=== PATIENT | male | born 1935 | race Caucasian/White ===

== ENCOUNTER 2016-05-07 07:36 | Day surgery (SDC) | payer MEDICARE ==
[~2016-05-07 07:36] MED LIST: RINGERS SOLUTION,LACTATED 1,000 ML IV PRN
--- OUTSIDE RECORDS SUMMARY | 2016-05-07 07:41 | XMS REPORT | Continuity of Care Document ---
:1935 Author Organization [facility] ([facility]) Address [place] [address] Phone [phone] Care Team Providers Name Role Phone Ari Pineda Primary Care Provider [phone] Source Comments This disclosure is being made pursuant to the Care Everywhere program, applicable federal and state laws, and may not contain all informaitonavailable regarding this patient.[facility] ([facility]) Active Allergies and Adverse Reactions No Known Allergies Current Medications Prescription Sig. Disp. Refills Start Date End Date Status PROAIR HFA 90 mcg/Actuation inhaler 09/07/2014 Active QVAR 80 mcg/Actuation inhaler 09/07/2014 Active ZETIA 10 mg tablet 09/07/2014 Active IBUPROFEN 800 mg tablet 07/11/2014 Active LOVASTATIN 40 mg tablet 09/07/2014 Active METOPROLOL tartrate 50 mg tablet 09/07/2014 Active NITROSTAT 0.4 mg SL tablet 09/07/2014 Active SPIRIVA WITH HANDIHALER 18 mcg 09/07/2014 Active inhalation capsule Active Problems Problem Noted Date Coronary artery disease Cardiac arrest Status post AAA (abdominal aortic aneurysm) repair Hypertension Hyperlipidemia Social History Tobacco Use Types Packs/Day Years Used Date Former Smoker Alcohol Use Drinks/Week oz/Week Comments Yes Last Filed Vital Signs Vital Sign Reading Time Taken Blood Pressure 136/90 09/19/2014 11:03 AM CDT Pulse 70 09/19/2014 11:03 AM CDT Temperature - - Respiratory Rate - - Height 1.778 m (5' 10") 09/19/2014 11:03 AM CDT Weight 91.627 kg (202 lb) 09/19/2014 11:03 AM CDT Body Mass Index 28.98 09/19/2014 11:03 AM CDT Oxygen Saturation - - Plan of Care Health Maintenance Due Date Last Done Comments Hepatitis B Vaccine (1 of 3 - Primary Series) 1935 Tdap Vaccine 08/04/1947 Lipid Disorder Screening 1954 Td Vaccine 1953 Colonoscopy 1986 Zoster Vaccine 1996 Pneumococcal Vaccine (1 of 2 - PCV13) 2001 Influenza Vaccine: Seasonal (#1) 10/08/2015 Results from Last 3 Months Not on file
[2016-05-07 10:49] VITALS: BP 111/57
--- NOTE | 2016-05-07 12:01 | OR ---
Operative Report - Dictated Report Narrative: OPERATIVE REPORT DATE OF OPERATION: 05/07/2016 PREOPERATIVE DIAGNOSIS: History of colon polyps. Diarrhea. Recent colitis demonstrated on PET/CT POSTOPERATIVE DIAGNOSIS: Colitis (pathology and cultures pending) OPERATION: Sigmoidoscopy with biopsies and collection of stool sample SURGEON: Michelle Perez MD ANESTHESIA: PANKAJ Garay CRNA INDICATIONS FOR PROCEDURE: The patient is a 80-year-old male referred by Dr. Pineda initially for colon polyp surveillance. The patient has a past history of adenomatous polyps in 2011 and is due for surveillance. When initially seen in the office he complained of constipation, however he has developed diarrhea, and a PET/CT scan done yesterday demonstrates colitis. FINDINGS: Significant colitis with exudate (biopsy and stool samples pending) NARRATIVE OF PROCEDURE: The patient was identified in the holding area, and prior to the administration of anesthetic, a multidisciplinary timeout was observed. With the patient in the left lateral position and after the administration of intravenous sedation, the perineum was inspected. There was no evidence of pilonidal disease or skin breakdown. The external appearance of the anus was normal. Sphincter tone was good. The flexible fiberoptic colonoscope was inserted into the rectum which was insufflated with air. Immediately apparent was marked erythema of the mucosa with exudate. Prep liquid was suctioned to allow the scope to be advanced to approximately 40 cm. The colitis was seen to extend proximally. Decision was made not to pursue colonoscopy given the severity of inflammation. Random biopsies were obtained of manufacturers representative mucosa. The biopsy sites were seen to be hemostatic. Liquid stool was collected and submitted for Gram stain, culture for pathogens, C. difficile toxin, and O and P. The insufflated air was removed and as much liquid as possible suctioned. The scope was withdrawn from the patient and the procedure terminated. The patient tolerated the anesthetic and procedure well without complication and was transferred back to the ambulatory surgery area awake and in stable condition. The patient remained stable throughout a period of postoperative observation. He denied abdominal discomfort, was able to tolerate by mouth intake, and was up without assistance. I shared the operative findings with the patient and his family, and he was given copies of the photographs which appear in the medical record. He was discharged home with instructions not to engage in hazardous activity today, but may resume normal activity tomorrow, and advance diet as tolerated. He is to continue those medications as listed in the history and physical exam. I made arrangements to contact him with the biopsy reports and will make additional recommendations for treatment and follow-up based upon those results. Reviewed and electronically signed
== END 2016-05-07 07:37 | disposition home or self-care (01) ==
LOC: AMB 07:36
PROVIDERS: ATTEND Surgery
PROC: 0DBN8ZX Excision of Sigmoid Colon, Via Natural or Artificial Opening Endoscopic, Diagnostic (ICD-10-PCS; principal; 2016-05-07 08:45)
DX: Z12.11 Encounter for screening for malignant neoplasm of colon (principal); K52.89 Other specified noninfective gastroenteritis and colitis; I10 Essential (primary) hypertension; I25.10 Atherosclerotic heart disease of native coronary artery without angina pectoris; E78.5 Hyperlipidemia, unspecified; J44.9 Chronic obstructive pulmonary disease, unspecified; E66.9 Obesity, unspecified; Z68.28 Body mass index [BMI] 28.0-28.9, adult; Z86.010 Personal history of colon polyps; Z80.0 Family history of malignant neoplasm of digestive organs; Z87.891 Personal history of nicotine dependence

== ENCOUNTER 2016-05-21 09:52 | Inpatient (IN) | payer MEDICARE ==
[2016-05-21 10:28] LABS: Hematocrit 33.9 % (42.0-52.0); Hemoglobin 10.9 gm/dL (13.5-18.0); Mean Cell Volume 89.7 fl (78-100); Mean Corpuscular Hemoglobin 28.8 pg (27-31); Mean Corpuscular Hgb Conc 32.2 g/dl (32-36); Mean Platelet Volume 8.6 fl (6.0-9.5); Neutrophil # 5.8 K/mm3 (1.3-6.0); Neutrophil % 83.1 % (42-75.0); Platelet Count 307 K/mm3 (150-450); Red Blood Count 3.78 M/mm3 (4.7-6.0); Red Cell Distribution Width 15.6 % (11.5-14.0); White Blood Count 6.9 K/mm3 (4.0-10.5)
[2016-05-21 10:49] LABS: Anion Gap 12.5 mmol/L (6.8-13.8); BUN/Creatinine Ratio 22.6 (9.0-21.6); Bilirubin, Total 0.5 mg/dL (0.0-1.1); Ca. Corrected For Albumin 9.3 mg/dL (8.4-10.2); Carbon Dioxide 22.7 mmol/L (24-32.6); Potassium 4.2 mmol/L (3.4-4.6); Total Protein 5.4 gm/dL (6.2-8.2)
[2016-05-21] MEDS ORDERED: DEXTROSE 5%-LACTATED RINGERS 1,000 ML IV PRN (11:21)
--- OUTSIDE RECORDS SUMMARY | 2016-05-21 11:23 | XMS REPORT | Continuity of Care Document ---
:1935 Author Organization [facility] ([facility]) Address [place] [address] Phone [phone] Care Team Providers Name Role Phone Ari Pineda Primary Care Provider [phone] Source Comments This disclosure is being made pursuant to the Care Everywhere program, applicable federal and state laws, and may not contain all informaitonavailable regarding this patient.[facility] ([facility]) Active Allergies and Adverse Reactions No [...]
--- NOTE | 2016-05-21 13:44 | ERNOTE ---
Medical Problem HPI - Narrative Date of Service: 05/21/16 - General Chief Complaint: General Assessment Time Seen by Provider: 05/21/16 11:20 Source: patient Exam Limitations: no limitations - Immun/Allergies/Home Medications Immunizations: IMMUNIZATION HX Immunizations Up to Date Yes History of Influenza Vaccine Yes Hx Pneumococcal Vaccination Yes Allergies/Adverse Reactions: Allergies hydrocodone Adverse Reaction (Intermediate, Verified 05/21/16 10:04) Other "wired" aggression Home Medications: HOME MEDICATIONS Aspirin [Tom Chewable Aspirin] 81 mg PO DAILY 02/04/14 [Last Taken 02/03/14] Ibuprofen [Motrin] 800 mg PO TID PRN 02/04/14 [Last Taken 02/03/14] Lovastatin 80 mg PO DAILY 05/22/15 [Last Taken Unknown] Metoprolol Tartrate [Lopressor] 25 mg PO BID 05/22/15 [Last Taken 05/07/16] Nitroglycerin [Nitrostat] 0.4 mg SL Q5MIN PRN 05/22/15 [Last Taken Unknown] Tiotropium [place] [Spiriva] 1 cap IH DAILY 05/22/15 [Last Taken Unknown] Mometasone Furoate [Asmanex Hfa] 100 mcg IH BID 04/11/16 [Last Taken Unknown] traMADol HCL [Ultram] 25 mg PO QID PRN 04/11/16 [Last Taken Unknown] Ciprofloxacin HCl [Cipro] 500 mg PO BID 05/21/16 [Last Taken Unknown] L.acidoph & Paracasei,B.lactis [Probiotic] 1 each PO DAILY 05/21/16 [Last Taken Unknown] Multivitamin [One Daily Essential] 1 each PO DAILY 05/21/16 [Last Taken Unknown] Tamsulosin HCl [Flomax] 0.8 mg PO DAILY 05/21/16 [Last Taken Unknown] metroNIDAZOLE [Flagyl] 500 mg PO QID 05/21/16 [Last Taken Unknown] - History of Present History Narrative: Brought to ER by ambulance at the request of his family with c/o severe diarrhea. Pt has had chronic diarrhea for about 3 months, he said, and was recently started on Flagyl and Cipro for colitis. C-dif was ruled out. For last two days, he energy level has waned considerably, and he has had several episodes of watery stool. Timing: constant, getting worse Severity: severe Review of Systems - Review of Systems Constitutional: Present: no symptoms reported EYE: Present: no symptoms reported ENT: Present: no symptoms reported Respiratory: Present: no symptoms reported Cardiology: Present: no symptoms reported Gastrointestinal/Abdominal: Present: diarrhea, eating less Genitourinary: Present: no symptoms reported Musculoskeletal: Present: no symptoms reported Skin: Present: no symptoms reported Neurological: Present: no symptoms reported Endocrine: Present: no symptoms reported Hematologic/Lymphatic: Present: no symptoms reported Psych: Present: no symptoms reported All Other Systems: All systems neg except as marked - Patient's Past Medical History Patient History - Medical: Obesity, Osteoarthritis Patient History - Cardiac/Respiratory: COPD, Hyperlipidemia, Peripheral Vascular Disease Patient History - Cancer: No Hx of Cancer Patient History - Surgical Procedures: Cataracts, Colonoscopy, Other Patient History - Other: None - Family History Father Family History - Medical: , No pertinent hx Family History - Cardiac/Respiratory: Myocardial Infarction Family History - Cancer: No pertinent family hx Mother Family History - Medical: , No pertinent hx Family History - Cardiac/Respiratory: No pertinent hx Family History - Cancer: Colon - Social History Living Situations: alone Abuse History: No History of abuse Psych History: No pertinent hx Smoking Status: Former smoker Alcohol Use: none Drug Use: none - Immunizations Immunizations Up to Date: Yes Hx Pneumococcal Vaccination: Yes History of Influenza Vaccine: Yes Physical Exam - Physical Exam General Appearance: Present: alert, no apparent distress, lethargic - slightly Eye Exam: Normal inspection: bilateral, PERRL: bilateral, EOMI: bilateral Ears, Nose, Throat: Present: normal except -, other - Dry mmm Neck: Present: normal inspection, nontender Respiratory: Present: no respiratory distress, normal breath sounds, no accessory muscle use, chest nontender, lungs clear Cardiovascular/Chest: Present: no murmur, irregularly irregular Gastrointestinal/Abdominal: Present: normal bowel sounds, nontender, nondistended, soft, no organomegaly Extremity Exam: Present: normal inspection Neurological Exam: Present: alert, oriented, normal mood/affect, no motor/ sensory deficits Skin Exam: Present: normal color, warm/dry ED Progress - Results and Orders Patient's Lab Results:: I have reviewed the patient's lab results. - Vital Signs Patient's Vital Signs:: I have reviewed the patient's vital signs. Vital Signs: Vital Signs 05/21/16 05/21/16 05/21/16 09:58 10:13 10:37 Temperature 36.4 C L Pulse Rate 99 93 89 Respiratory 13 17 19 Rate Blood Pressure 102/57 101/65 96/60 O2 Sat by Pulse 100 100 98 Oximetry 05/21/16 05/21/16 11:29 12:48 Temperature 36.5 C 36.5 C Pulse Rate 99 99 Respiratory 18 20 Rate Blood Pressure 102/51 98/59 O2 Sat by Pulse 92 93 Oximetry - EKG EKG: atrial fibrillation - with ventricular rate of 99 bpm. EKG read: Interp. by me - Progress/Reassessment Chief Complaint: General Assessment Progress:: Improved - after IV fluid. Plan - Plan Plan: Case discussed with Dr. Pineda; will admit pt to observation. Departure - Departure Clinical Impression: Dehydration, severe, Acute renal insufficiency, Severe diarrhea, Chronic a-fib Condition: Fair
[2016-05-21] MEDS: NORMAL SALINE 1,000 ML IV PRN ×2 (14:48→17:57)
--- OUTSIDE RECORDS SUMMARY | 2016-05-21 14:51 | XMS REPORT | Continuity of Care Document ---
:1935 Author Organization [facility] ([facility]) Address [place] [address] Phone [phone] Care Team Providers Name Role Phone Ari Pineda Primary Care Provider [phone] Source Comments This disclosure is being made pursuant to the Care Everywhere program, applicable federal and state laws, and may not contain all informaitonavailable regarding this patient.[facility] ([facility]) Active Allergies and Adverse Reactions No [...]
--- NOTE | 2016-05-21 17:30 | HP ---
Chief Complaint - Chief Complaint Date of Service: 05/21/16 Time of Service: 17:16 Chief Complaint: weakness and diarrhea History of Present Illness: Gonzalez Looney, is a 80-year-old white female, with previous medical history of coronary artery disease hypertension, COPD, peripheral vascular disease, abdominal aortic aneurysm ,popliteal aneurysm, who was admitted on 05/21/2016 because of severe weakness and diarrhea. Patient has had diarrhea for the last [address] scan of his abdomen showed colitis which could be infectious versus inflammatory. He also had a colonoscopy by Dr. Perez. His colon was capacitors and so it was not completed. His inflammatory bowel disease panel and celiac panel came back normal. He was started on Cipro/ Flagyl and has 2 more days left with it. He said initially his diarrhea got better, however, it has recurred with a vengeance and for the last few days he has been getting more weak, loosing his energy and unable to ambulate at times from his bed to the bathroom because of weakness, lightheadedness and dizziness. His son then called 911 and he was brought to emergency room. In the ER his SBP was ranging from 80's to low 100's. His Cr was 1.87 . He was started on IVF and admitted for observation. - Patient's Past Medical History Patient History - Medical: Obesity, Osteoarthritis Patient History - Cardiac/Respiratory: CHF, COPD, Hyperlipidemia, Myocardial Infarction, Peripheral Vascular Disease Patient History - Cancer: No Hx of Cancer Patient History - Surgical Procedures: Cataracts, Colonoscopy, Other Patient History - Other: None - Family History Father Family History - Medical: , No pertinent hx Family History - Cardiac/Respiratory: Myocardial Infarction Family History - Cancer: No pertinent family hx Mother Family History - Medical: , No pertinent hx Family History - Cardiac/Respiratory: No pertinent hx Family History - Cancer: Colon - Social History Living Situations: alone Abuse History: No History of abuse Psych History: No pertinent hx Smoking Status: Former smoker Have you smoked in the past 12 months: No Alcohol Use: none Drug Use: none - Immunizations Immunizations Up to Date: Yes Hx Pneumococcal Vaccination: Yes History of Influenza Vaccine: Yes Review Of Systems (GEN) - Review of Systems Generalized/Overall Review: Present: Weakness, Fatigue. Absent: Chills, Fever EENTM: Present: No Symptoms Reported Respiratory: Absent: Cough, Shortness of Breath Cardiac: Present: Edema. Absent: Chest Pain, Palpitations Abdominal: Present: Diarrhea. Absent: Nausea, Vomiting Genitourinary: Absent: Urgency, Frequency Musculoskeletal: Absent: Joint Pain Allergies/Adverse Reactions: Allergies Allergy/AdvReac Type Severity Reaction Status Date / Time hydrocodone AdvReac Intermediate Other Verified 05/21/16 16:16 Home Medications: HOME MEDICATIONS Aspirin [Tom Chewable Aspirin] 81 mg PO DAILY 02/04/14 [Last Taken 02/03/14] Ibuprofen [Motrin] 800 mg PO TID PRN 02/04/14 [Last Taken 02/03/14] Lovastatin 80 mg PO DAILY 05/22/15 [Last Taken Unknown] Metoprolol Tartrate [Lopressor] 25 mg PO BID 05/22/15 [Last Taken 05/07/16] Nitroglycerin [Nitrostat] 0.4 mg SL Q5MIN PRN 05/22/15 [Last Taken Unknown] Tiotropium [place] [Spiriva] 1 cap IH DAILY 05/22/15 [Last Taken Unknown] Mometasone Furoate [Asmanex Hfa] 100 mcg IH BID 04/11/16 [Last Taken Unknown] traMADol HCL [Ultram] 25 mg PO QID PRN 04/11/16 [Last Taken Unknown] Albuterol Sulfate [Proair Hfa] 2 puff IH QID PRN 05/21/16 [Last Taken Unknown] Ciprofloxacin HCl [Cipro] 500 mg PO BID 05/21/16 [Last Taken Unknown] Ipratropium/Albuterol Sulfate [Combivent Respimat Inhal [place]] 1 puff NEB BID [Last Taken Unknown] L.acidoph & Paracasei,B.lactis [Probiotic] 1 each PO DAILY 05/21/16 [Last Taken Unknown] Multivitamin [One Daily Essential] 1 each PO DAILY 05/21/16 [Last Taken Unknown] Tamsulosin HCl [Flomax] 0.8 mg PO DAILY 05/21/16 [Last Taken Unknown] metroNIDAZOLE [Flagyl] 500 mg PO QID 05/21/16 [Last Taken Unknown] Exam - Exam Vital Signs: Vital Signs - Last Taken Temp 37.1 C 05/21/16 15:46 Pulse 92 05/21/16 15:46 Resp 16 05/21/16 15:46 BP 96/53 05/21/16 15:46 Pulse Ox 93 05/21/16 15:46 Constitutional: Present: Alert, Oriented x3, Cooperative, Mild distress ENT Exam: Present: hearing grossly normal Eye Exam: bilateral eye: normal inspection, PERRL, EOMI Neck: Present: supple Breasts: Present: Exam deferred Respiratory: Present: decreased breath sounds, No rales, No wheezing Cardiovascular/Chest: Present: regular rate, rhythm, no JVD, no murmur Abdomen: Present: soft, other - positive aneurysmal bruit, distended, hypoactive Extremity: Present: no calf tenderness, lower extremity edema, other - positive aneurysm, left poploteal area Diagnostic Studies: Laboratory Results WBC 6.9 K/mm3 (4.0-10.5) 05/21/16 10:23 RBC 3.78 M/mm3 (4.7-6.0) L 05/21/16 10:23 Hgb 10.9 gm/dL (13.5-18.0) L 05/21/16 10:23 Hct 33.9 % (42.0-52.0) L 05/21/16 10:23 MCV 89.7 fl (78-100) 05/21/16 10:23 MCH 28.8 pg (27-31) 05/21/16 10:23 MCHC 32.2 g/dl (32-36) 05/21/16 10:23 RDW 15.6 % (11.5-14.0) H 05/21/16 10:23 Plt Count 307 K/mm3 (150-450) 05/21/16 10:23 MPV 8.6 fl (6.0-9.5) 05/21/16 10:23 Immature Gran % (Auto) 1.00 % (0.001-0.429) H 05/21/16 10:23 Immature Gran # (Auto) 0.07 K/mm3 (0.000-0.0310) H 05/21/16 10:23 Neutrophils % 83.1 % (42-75.0) H 05/21/16 10:23 Lymphocytes % 4.5 % (20-51) L 05/21/16 10:23 Monocytes % 9.5 % (0.0-9) H 05/21/16 10:23 Eosinophils % 1.6 % (0.0-3.0) 05/21/16 10:23 Basophils % 0.3 % (0.0-1.0) 05/21/16 10:23 Nucleated RBC % 0.0 k/mm3 (0-1) 05/21/16 10:23 Neutrophils # 5.8 K/mm3 (1.3-6.0) 05/21/16 10:23 Lymphocytes # 0.3 k/mm3 (1.5-3.5) L 05/21/16 10:23 Monocytes # 0.7 k/mm3 (0.0-1.0) 05/21/16 10:23 Eosinophils # 0.1 k/mm3 (0.0-0.7) 05/21/16 10:23 Absolute Basophils 0.0 k/mm3 (0.0-0.1) 05/21/16 10:23 Sodium 133 mmol/L (132-142) 05/21/16 10:23 Plasma Sodium 133 mmol/L (130-142) 05/21/16 10:23 Potassium 4.2 mmol/L (3.4-4.6) 05/21/16 10:23 Chloride 102 mmol/L (97-106) 05/21/16 10:23 Carbon Dioxide 22.7 mmol/L (24-32.6) L 05/21/16 10:23 Anion Gap 12.5 mmol/L (6.8-13.8) 05/21/16 10:23 BUN 42 mg/dL (6-23) H D 05/21/16 10:23 Creatinine 1.86 mg/dL (0.4-1.4) H D 05/21/16 10:23 Est GFR (Non-Af Amer) 37 mL/min (60-130) L D 05/21/16 10:23 BUN/Creatinine Ratio 22.6 (9.0-21.6) H 05/21/16 10:23 Random Glucose 101 mg/dL (70-110) 05/21/16 10:23 Calcium 8.0 mg/dL (7.9-10.9) 05/21/16 10:23 Calcium Adj for Albumin 9.3 mg/dL (8.4-10.2) 05/21/16 10:23 Total Bilirubin 0.5 mg/dL (0.0-1.1) 05/21/16 10:23 AST 25 U/L (0-48) 05/21/16 10:23 ALT 17 U/L (19-67) L 05/21/16 10:23 Alkaline Phosphatase 73 U/L (50-170) 05/21/16 10:23 Total Protein 5.4 gm/dL (6.2-8.2) L 05/21/16 10:23 Albumin 2.0 gm/dl (3.4-5.0) L 05/21/16 10:23 Assessment/Plan - Assessment/Plan (1) Severe diarrhea Assessment: infectious ? continue with Cipro /Flagy. will give IV . will refer to Gastroenterology on outpatient basis. Problem: Acute (2) Dehydration, severe Assessment: continue with IVF. Problem: Acute (3) Acute renal insufficiency Assessment: due to prerenal causes. 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 Problem: Chronic (8) Hypoalbuminemia Assessment: causing edema. Problem: Acute
[2016-05-21] MEDS ORDERED: NITROGLYCERIN 0.4 MG/TAB BTL SL PRN (17:33)
[2016-05-21] MEDS ORDERED: ALBUTEROL SULFATE 2.5 MG/3 ML VIAL.NEB IH PRN (17:33)
[2016-05-21] MEDS ORDERED: traMADol HCL 50 MG TABLET PO PRN (17:33)
[2016-05-21 17:44] LABS: Urine Bilirubin 1 mg/dl (NEGATIVE); Urine Blood Negative /ul (NEGATIVE); Urine Ketone Negative (NEGATIVE); Urine Protein 15 mg/dL (NEGATIVE); Urine Specific Gravity 1.025 SP.GR. (1.005-1.030); Urine Urobilinogen Normal (NORMAL)
[2016-05-21] MEDS ORDERED: CIPROFLOXACIN LACTATE/D5W 400 MG in Premix Bag 1 BAG IV SCH (17:45)
[2016-05-21 17:56] LABS: Urine Appearance Clear; Urine Bacteria TRACE; Urine Color Brown; Urine Mucus Few - 1+; Urine Nitrite Positive (NEGATIVE); Urine Other Crystal Few - 1+ /hpf; Urine RBC None Seen /hpf (0-5); Urine WBC TRACE /hpf (0-5); Urine Yeast TRACE
[2016-05-21] MEDS: metroNIDAZOLE/SODIUM CHLORIDE 500 MG/100 ML BAG IV SCH (17:57)
[2016-05-21] MEDS: ALBUTEROL SULFATE/IPRATROPIUM 3 ML NEBU IH SCH (18:20)
[2016-05-21] MEDS: BUDESONIDE 0.5 MG/2 ML VIAL.NEB IH SCH (18:23)
[2016-05-21] MEDS: TAMSULOSIN HCL 0.4 MG CAP.SR.24H PO SCH (19:11)
[2016-05-21] MEDS: CIPROFLOXACIN LACTATE IV SCH (19:13)
[2016-05-21] MEDS: D5W IV SCH (19:13)
[2016-05-22] MEDS: metroNIDAZOLE/SODIUM CHLORIDE 500 MG/100 ML BAG IV SCH ×3 (00:50→17:18)
[2016-05-22] MEDS: NORMAL SALINE 1,000 ML IV PRN ×3 (00:50→18:58)
[2016-05-22] MEDS: ALBUTEROL SULFATE/IPRATROPIUM 3 ML NEBU IH SCH ×4 (06:03→18:05)
[2016-05-22] MEDS: BUDESONIDE 0.5 MG/2 ML VIAL.NEB IH SCH ×2 (06:03→18:15)
[2016-05-22 06:24] LABS: Hematocrit 32.9 % (42.0-52.0); Hemoglobin 10.8 gm/dL (13.5-18.0); Mean Cell Volume 89.2 fl (78-100); Mean Corpuscular Hemoglobin 29.3 pg (27-31); Mean Corpuscular Hgb Conc 32.8 g/dl (32-36); Mean Platelet Volume 9.3 fl (6.0-9.5); Platelet Count 358 K/mm3 (150-450); Red Blood Count 3.69 M/mm3 (4.7-6.0); Red Cell Distribution Width 15.7 % (11.5-14.0); White Blood Count 8.1 K/mm3 (4.0-10.5)
[2016-05-22 06:28] LABS: Total Cells Counted 100
[2016-05-22 06:37] LABS: Albumin * 1.8 gm/dl (3.4-5.0); Anion Gap 14.2 mmol/L (6.8-13.8); BUN/Creatinine Ratio 21.9 (9.0-21.6); Bilirubin, Total 0.6 mg/dL (0.0-1.1); Ca. Corrected For Albumin 9.5 mg/dL (8.4-10.2); Calcium * 8.1 mg/dL (7.9-10.9); Potassium 4.2 mmol/L (3.4-4.6); Total Protein 5.2 gm/dL (6.2-8.2)
[2016-05-22 07:11] LABS: Atypical (Reactive) Lymph 3 % (0-2); Band 15 % (0-2.0); Immature Granulocyte 1 (0-1); Lymphocyte 5 % (20-51); Monocyte 4 % (0-9); Neutrophil 72 % (42-75); Neutrophil # 5.8 K/mm3 (1.3-6.0); Platelet Estimate Normal (NORMAL)
[2016-05-22 07:12] LABS: RBC Morphology Normal (NORMAL)
--- NOTE | 2016-05-22 08:06 | PN ---
Subjective - Date and Time Seen Date: 05/22/16 Time: 08:01 Subjective Narrative: Positive emesis overnight. Xray shows ileus vs bowel obsruction. Surgery consulted. changed to acute status. Objective - Review of Systems Generalized/Overall Review: Reports: Weakness. Denies: Chills, Fever EENTM: Reports: No Symptoms Reported Respiratory: Denies: Cough, Shortness of Breath Cardiac: Reports: Edema. Denies: Chest Pain, Palpitations Abdominal: Reports: Nausea, Vomiting Genitourinary Symptoms: Denies: Urgency, Frequency Musculoskeletal Complaints: Reports: Joint Pain - Vitals Vitals: Last Vital Signs Temp 36.8 C 05/22/16 07:35 Pulse 81 05/22/16 07:35 Resp 20 05/22/16 07:35 BP 99/48 05/22/16 07:35 Pulse Ox 90 05/22/16 07:35 - Abnormal Lab Findings Abnormal Lab Findings: Abnormal Lab Results 05/21/16 05/21/16 05/22/16 Range/Units 16:36 17:27 06:00 RBC (4.7-6.0) M/mm3 Hgb (13.5-18.0) gm/dL Hct (42.0-52.0) % RDW (11.5-14.0) % Band Neuts % (Manual) (0-2.0) % Lymphocytes % (Manual) (20-51) % Lymphocytes # (Manual) (1.5-3.5) k/mm3 Atypic/Reactive Lymphs (0-2) % Carbon Dioxide (24-32.6) mmol/L Anion Gap (6.8-13.8) mmol/L BUN (6-23) mg/dL Creatinine (0.4-1.4) mg/dL Est GFR (Non-Af Amer) (60-130) mL/min BUN/Creatinine Ratio (9.0-21.6) Random Glucose (70-110) mg/dL B-Natriuretic Peptide 2453 H (5-650) pg/mL Total Protein (6.2-8.2) gm/dL Albumin (3.4-5.0) gm/dl Urine Protein 15 H (NEGATIVE) mg/dL Urine Nitrate Positive H (NEGATIVE) Urine Bilirubin 1 H (NEGATIVE) mg/dl Other Crystals Few - 1+ H (NONE) /hpf Hyaline Casts 5-10 H (NONE) /LPF Urine Mucus Few - 1+ H (NONE) Stool Occult Blood Positive H 05/22/16 05/22/16 Range/Units 06:17 06:17 RBC 3.69 L (4.7-6.0) M/mm3 Hgb 10.8 L (13.5-18.0) gm/dL Hct 32.9 L (42.0-52.0) % RDW 15.7 H (11.5-14.0) % Band Neuts % (Manual) 15 H (0-2.0) % Lymphocytes % (Manual) 5 L (20-51) % Lymphocytes # (Manual) 0.4 L (1.5-3.5) k/mm3 Atypic/Reactive Lymphs 3 H (0-2) % Carbon Dioxide 21.0 L (24-32.6) mmol/L Anion Gap 14.2 H (6.8-13.8) mmol/L BUN 34 H (6-23) mg/dL Creatinine 1.55 H (0.4-1.4) mg/dL Est GFR (Non-Af Amer) 46 L D (60-130) mL/min BUN/Creatinine Ratio 21.9 H (9.0-21.6) Random Glucose 134 H D (70-110) mg/dL B-Natriuretic Peptide (5-650) pg/mL Total Protein 5.2 L (6.2-8.2) gm/dL Albumin 1.8 L (3.4-5.0) gm/dl Urine Protein (NEGATIVE) mg/dL Urine Nitrate (NEGATIVE) Urine Bilirubin (NEGATIVE) mg/dl Other Crystals (NONE) /hpf Hyaline Casts (NONE) /LPF Urine Mucus (NONE) Stool Occult Blood - Exam Constitutional: Present: Alert, Oriented x3, Cooperative, Elderly ENT Exam: Present: hearing grossly normal Neck: Present: supple Respiratory: Present: decreased breath sounds, crackles, No wheezing Cardiovascular/Chest: Present: regular rate, rhythm, no JVD, no murmur Abdomen: Present: soft, nontender, distended, hypoactive Extremity: Present: no calf tenderness, lower extremity edema Cauti Physician Documentation - Urinary Catheter Management Urethral (Lewis) Date of Insertion: 05/22/16 Time of Insertion: 19:30 Assessment/Plan - Problems/Diagnosis (1) Severe diarrhea Problem: Acute Narrative: has diarrhea x 7 overnight. torres continue with IVF due to severe colitis. etiology? infectious /inflammatory / ischemic (unlikely) on IV Cipro /Flagyl. (2) Dehydration, severe Problem: Acute Narrative: BP still in the upper 90 to ;ow 100. continue with IVF. (3) Acute renal insufficiency Problem: Acute (4) Coronary artery disease Problem: Chronic Qualifiers: (5) Hypertension Problem: Chronic Qualifiers: Hypertension type: essential hypertension Qualified Code(s): I10 - Essential (primary) hypertension (6) PAD (peripheral artery disease) Problem: Chronic (7) Aneurysm Problem: Chronic Narrative: for repair this June 06. (8) Hypoalbuminemia Problem: Chronic (9) Nausea & vomiting Problem: Acute Qualifiers: Vomiting type: unspecified Vomiting Intractability: non-intractable Qualified Code(s): R11.2 - Nausea with vomiting, unspecified Narrative: Xray shows pathologic dilated bowel loops - ileus vs obstruction. keep NPO. NGT inserted. NPO. surgery on consult. if no obstruction possible decompressive colonoscopy.
[2016-05-22] MEDS ORDERED: LACTOBACILLUS ACIDOPHILUS 100 CAP BTL PO SCH (09:00)
[2016-05-22] MEDS ORDERED: TIOTROPIUM BROMIDE 5 CAP INHALER IH SCH (09:00)
[2016-05-22] MEDS ORDERED: MULTIVITAMINS 1 CAP CAPSULE PO SCH (09:00)
[2016-05-22] MEDS ORDERED: ASPIRIN 81 MG TAB.CHEW PO SCH (09:00)
--- NOTE | 2016-05-22 13:11 | CONS ---
[facility] - General Date of Service: 05/22/16 Narrative: Asked to see regarding a possible bowel obstruction. This patient is well known to the general surgery service. 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 He was presumptively started on cipro/flagyl and remains on that now. He was admitted for unremitting diarrhea with dehydration. After admission he had nausea and vomiting. An NG was placed and an AXR was performed. The films showed abnormal loops of bowel possibly c/w ileus or obstruction. He has had an extensive w/u for his colitis. It is C. diff negative, inflammatory bowel markers negative, cultures negative, O&P negative. Source: patient, old records, other - Dr. Pineda - History of Present Illness Allergies/Adverse Reactions: Allergies hydrocodone Adverse Reaction (Intermediate, Verified 05/21/16 16:16) Other "wired" aggression Home Medications: Home Medications Medication Instructions Recorded Last Taken Aspirin [Tom Chewable Aspirin] 81 mg PO DAILY 02/04/14 02/03/14 Ibuprofen [Motrin] 800 mg PO TID PRN 02/04/14 02/03/14 Lovastatin 80 mg PO DAILY 05/22/15 Unknown Metoprolol Tartrate [Lopressor] 25 mg PO BID 05/22/15 05/07/16 Nitroglycerin [Nitrostat] 0.4 mg SL Q5MIN PRN 05/22/15 Unknown Tiotropium [place] [Spiriva] 1 cap IH DAILY 05/22/15 Unknown Mometasone Furoate [Asmanex Hfa] 100 mcg IH BID 04/11/16 Unknown traMADol HCL [Ultram] 25 mg PO QID PRN 04/11/16 Unknown Albuterol Sulfate [Proair Hfa] 2 puff IH QID PRN 05/21/16 Unknown Ciprofloxacin HCl [Cipro] 500 mg PO BID 05/21/16 Unknown Ipratropium/Albuterol Sulfate 1 puff NEB BID 05/21/16 Unknown [Combivent Respimat Inhal [place]] L.acidoph & Paracasei,B.lactis 1 each PO DAILY 05/21/16 Unknown [Probiotic] Multivitamin [One Daily Essential] 1 each PO DAILY 05/21/16 Unknown Tamsulosin HCl [Flomax] 0.8 mg PO DAILY 05/21/16 Unknown metroNIDAZOLE [Flagyl] 500 mg PO QID 05/21/16 Unknown - Patient's Past Medical History Patient History - Medical: Obesity, Osteoarthritis Patient History - Cardiac/Respiratory: CHF, COPD, Hyperlipidemia, Myocardial Infarction, Peripheral Vascular Disease Patient History - Cancer: No Hx of Cancer Patient History - Surgical Procedures: Cataracts, Colonoscopy, Other Patient History - Other: None - Family History Father Family History - Medical: , No pertinent hx Family History - Cardiac/Respiratory: Myocardial Infarction Family History - Cancer: No pertinent family hx Mother Family History - Medical: , No pertinent hx Family History - Cardiac/Respiratory: No pertinent hx Family History - Cancer: Colon - Social History Living Situations: alone Abuse History: No History of abuse Psych History: No pertinent hx Smoking Status: Former smoker Have you smoked in the past 12 months: No Alcohol Use: none Drug Use: none - Immunizations Immunizations Up to Date: Yes Hx Pneumococcal Vaccination: Yes History of Influenza Vaccine: Yes Procedures EXCISION OF SIGMOID COLON, ENDO, DIAGN (05/07/16) MEASURE OF ARTERIAL SATURATION, PERIPHERAL, PERC APPROACH (02/05/16) REPLACEMENT OF LEFT LENS WITH SYNTH SUB, PERC APPROACH (06/11/15) REPLACEMENT OF RIGHT LENS WITH SYNTH SUB, PERC APPROACH (05/28/15) Medications - Medications Current Medications: Current Medications Albuterol/Ipratropium (Duoneb 2.5-0.5mg/3ml Soln) 3 ml IH QIDRT [facility] Stop: 06/20/16 19:01 Last Admin: 05/22/16 10:07 Dose: 3 ml Aspirin (Aspirin Chewable) 81 mg PO DAILY [facility] Stop: 06/21/16 09:01 Last Admin: 05/22/16 09:35 Dose: Not Given Budesonide (Pulmicort Respules) 0.5 mg IH BIDRT [facility] Stop: 06/20/16 19:01 Last Admin: 05/22/16 06:03 Dose: 0.5 mg Dextrose/Lactated Ringer's (Dextrose 5%-Lr) 1,000 mls @ 250 mls/hr IV .Q4H PRN PRN Reason: HYDRATION Stop: 06/20/16 11:22 Last Infusion: 05/21/16 14:42 Dose: 250 mls/hr Sodium Chloride (Sodium Chloride 0.9%) 1,000 mls @ 150 mls/hr IV .Q6H40M PRN PRN Reason: HYDRATION Stop: 06/20/16 14:25 Last Admin: 05/22/16 00:50 Dose: 150 mls/hr Metronidazole (Flagyl) 500 mg in 100 mls @ 100 mls/hr IV Q8H [facility] Stop: 06/20/16 17:46 Last Admin: 05/22/16 09:57 Dose: 100 mls/hr Ciprofloxacin/Dextrose 400 mg/ (Premix Bag) 200 bag in 200 mls @ 200 mls/hr IV Q24H [facility] PRN Reason: Protocol Stop: 06/20/16 19:01 Last Admin: 05/21/16 19:13 Dose: 200 mls/hr Lactobacillus Acidophilus (Bacid) 1 cap PO DAILY [facility] Stop: 06/21/16 09:01 Last Admin: 05/22/16 09:35 Dose: Not Given Tamsulosin HCl (Flomax) 0.8 mg PO DAILY@1900 [facility] Stop: 06/20/16 19:01 Last Admin: 05/21/16 19:11 Dose: 0.8 mg Tiotropium [place] (Spiriva) 1 cap IH DAILY [facility] Stop: 06/21/16 09:01 Last Admin: 05/22/16 09:36 Dose: Not Given Physical Examination - Exam Vital Signs: Vital Signs - Last Taken Temp 37 C 05/22/16 10:18 Pulse 101 H 05/22/16 10:18 Resp 24 H 05/22/16 10:18 BP 96/56 05/22/16 10:18 Pulse Ox 91 05/22/16 10:18 O2 Oxygen Delivery Method Room Air Constitutional: Present: Alert, Oriented x3, Cooperative, No distress ENT Exam: Present: other - NG tube in place draining bilious succus entericus Neck: Present: normal inspection Respiratory: Present: no respiratory distress Abdomen: Present: soft, nontender, obese, distended. Absent: guarding, rigidity , rebound tenderness - Results and Findings: Narrative: A: Colitis, uncertain etiology. Colonic distention approaching 8-9 cm. No evidence of obstruction P: Recommend decompressive colonoscopy. Case d/w Dr. Pineda. The risks and benefits of this procedure were reviewed with the patient. He seems to understand, asks appropriate questions and desires to proceed. Lab/Microbiology results last 24 hrs: Abnormal/Pending Laboratory Last 24 HRS 05/22/16 05/22/16 05/22/16 06:17 06:17 06:00 RBC 3.69 L Hgb 10.8 L Hct 32.9 L RDW 15.7 H Band Neuts % (Manual) 15 H Lymphocytes % (Manual) 5 L Lymphocytes # (Manual) 0.4 L Atypic/Reactive Lymphs 3 H Carbon Dioxide 21.0 L Anion Gap 14.2 H BUN 34 H Creatinine 1.55 H Est GFR (Non-Af Amer) 46 L D BUN/Creatinine Ratio 21.9 H Random Glucose 134 H D B-Natriuretic Peptide 2453 H Total Protein 5.2 L Albumin 1.8 L Urine Protein Urine Nitrate Urine Bilirubin Other Crystals Hyaline Casts Urine Mucus Stool Occult Blood 05/21/16 05/21/16 17:27 16:36 RBC Hgb Hct RDW Band Neuts % (Manual) Lymphocytes % (Manual) Lymphocytes # (Manual) Atypic/Reactive Lymphs Carbon Dioxide Anion Gap BUN Creatinine Est GFR (Non-Af Amer) BUN/Creatinine Ratio Random Glucose B-Natriuretic Peptide Total Protein Albumin Urine Protein 15 H Urine Nitrate Positive H Urine Bilirubin 1 H Other Crystals Few - 1+ H Hyaline Casts 5-10 H Urine Mucus Few - 1+ H Stool Occult Blood Positive H Culture 05/21/16 17:27 Urine Culture - Preliminary Urine,Voided No Growth
[2016-05-22] MEDS ORDERED: RINGERS SOLUTION,LACTATED 1,000 ML IV ONE (15:49)
--- NOTE | 2016-05-22 16:22 | OR ---
Operative Report - Dictated Report Narrative: Date: 05/22/2016 Preop dx: Hx of colitis, dilated colon Postop dx: Fulminant colitis Procedure: Decompressive colonoscopy Staff surgeon: Kiet Mullins MD Proctoring surgeon: Mery Perez MD PROCEDURE: After informed consent the patient underwent the smooth induction of general endotracheal anesthesia and was placed in the left lateral decubitus position. A flexible fiberoptic video colonoscope was then introduced and advanced without difficulty under direct vision without insufflation to the distal descending colon. The scope was not advanced further due to the fulminant nature of the colitis that was encountered to that point. Decompression was performed by gentle external pressure on the ascending and transverse colon and was deemed reasonably successful. It was elected to perform no biopsies today as they had been taken on his previous scope 2 weeks ago. The scope was slowly withdrawn with removal of air, stool, purulence, and blood. Pseudopolyps were noted. Inflammation was non-contiguous. The patient tolerated the procedure well with no apparent immediate complication and was discharged to recover in satisfactory condition. Case has been discussed with Dr. Pineda. Recommend transfer to [facility]. This requires a quarternary referral center.
--- NOTE | 2016-05-22 17:12 | DS ---
Transfer Discharge Summary - Diagnosis(s)/Problems (1) Severe diarrhea Narrative: due to fulminant colitis Problem: Acute (2) Dehydration, severe Narrative: due to severe diarrhea. had 7 epsidoes of diarrhea last night. had emesis this monring. Problem: Acute (3) Megacolon Narrative: due to fulminant colitis s/p decompressive colonoscopy. Problem: Acute (4) Acute renal insufficiency Narrative: Cr improved Problem: Acute (5) Coronary artery disease Problem: Chronic (6) Hypertension Narrative: BP improved Problem: Chronic (7) PAD (peripheral artery disease) Problem: Chronic (8) Aneurysm Narrative: schedule for repair on June 06. Problem: Chronic (9) Hypoalbuminemia Narrative: Albumin of 1.8. acute on chronic. Problem: Chronic (10) Nausea & vomiting Narrative: ileus vs bowel obstruction on abdominal xray. surgery does not feel it is obstruction. Problem: Acute - Course Description of Stay: Gonzalez Looney, is a 80-year-old white female, with previous medical history of coronary artery disease hypertension, COPD, peripheral vascular disease, abdominal aortic aneurysm ,popliteal aneurysm, who was admitted on 05/21/2016 because of severe weakness and diarrhea. Patient has had diarrhea for the last [address] scan of his chest also showed the abdomen to have colitis which could be infectious versus inflammatory. He also had a colonoscopy by Dr. Perez. His colon was capacious and so it was not completed but biopsy showed chronic active ulcer consistent with severe chronic colitis, negative for dysplasia. His inflammatory bowel disease panel and celiac panel came back normal. His stool for culture showed no growth and O & P were negative. C. Diff was negative. He was started on Cipro/ Flagyl and has 2 more days left with it. He said initially his diarrhea got better, however, it has recurred with a vengeance and for the last few days he has been getting more weak, loosing his energy and unable to ambulate at times from his bed to the bathroom because of weakness, lightheadedness and dizziness. His son then called 911 and he was brought to emergency room. In the ER his SBP was ranging from 80's to low 100's. His Cr was 1.87 . He was started on IVF and admitted for observation. His flat and upright plate of the abdomen showed ileus vs obstruction. His colon had pathologic dilatation. Surgical consult was done for decompressive colonoscopy. They felt his colitis is much worst compared to 2 weeks ago and his colitis is fulminant . He is now being transferred to [facility] for evaluation and treatment with the available specialty. Procedures Performed: see notes below Procedures: decompressive colonoscopy - Results and Findings Results and Findings: Laboratory Results - last 24 hr 05/21/16 05/21/16 05/21/16 16:36 16:36 17:27 WBC RBC Hgb Hct MCV MCH MCHC RDW Plt Count MPV Neutrophils % (Manual) Band Neuts % (Manual) Lymphocytes % (Manual) Monocytes % (Manual) Immature Granulocytes Neutrophils # (Manual) Lymphocytes # (Manual) Monocytes # (Manual) Atypic/Reactive Lymphs Platelet Estimate RBC Morphology Sodium Plasma Sodium Potassium Chloride Carbon Dioxide Anion Gap BUN Creatinine Est GFR (Non-Af Amer) BUN/Creatinine Ratio Random Glucose Calcium Calcium Adj for Albumin Total Bilirubin AST ALT Alkaline Phosphatase B-Natriuretic Peptide Total Protein Albumin Urine Color Brown Urine Appearance Clear Urine pH 5.0 Ur Specific [place] 1.025 Urine Protein 15 H Urine Glucose (UA) Negative Urine Ketones Negative Urine Blood Negative Urine Nitrate Positive H Urine Bilirubin 1 H Urine Ictotest Negative Prot Sulfosalicylic Acd Negative Urine Urobilinogen Normal Ur Leukocyte Esterase Negative Urine RBC None seen Urine WBC Trace Ur Epithelial Cells 0-5 Other Crystals Few - 1+ H Urine Bacteria Trace Hyaline Casts 5-10 H Urine Mucus Few - 1+ H Urine Yeast Trace Urine Culture Comments Culture to follow Stool Occult Blood Positive H Stl C.difficile Tox A&B Negative 05/22/16 05/22/16 05/22/16 06:00 06:17 06:17 WBC 8.1 RBC 3.69 L Hgb 10.8 L Hct 32.9 L MCV 89.2 MCH 29.3 MCHC 32.8 RDW 15.7 H Plt Count 358 MPV 9.3 Neutrophils % (Manual) 72 Band Neuts % (Manual) 15 H Lymphocytes % (Manual) 5 L Monocytes % (Manual) 4 Immature Granulocytes 1 Neutrophils # (Manual) 5.8 Lymphocytes # (Manual) 0.4 L Monocytes # (Manual) 0.3 Atypic/Reactive Lymphs 3 H Platelet Estimate Normal RBC Morphology Normal Sodium 134 Plasma Sodium 135 Potassium 4.2 Chloride 103 Carbon Dioxide 21.0 L Anion Gap 14.2 H BUN 34 H Creatinine 1.55 H Est GFR (Non-Af Amer) 46 L D BUN/Creatinine Ratio 21.9 H Random Glucose 134 H D Calcium 8.1 Calcium Adj for Albumin 9.5 Total Bilirubin 0.6 AST 25 ALT 21 Alkaline Phosphatase 78 B-Natriuretic Peptide 2453 H Total Protein 5.2 L Albumin 1.8 L Urine Color Urine Appearance Urine pH Ur Specific [place] Urine Protein Urine Glucose (UA) Urine Ketones Urine Blood Urine Nitrate Urine Bilirubin Urine Ictotest Prot Sulfosalicylic Acd Urine Urobilinogen Ur Leukocyte Esterase Urine RBC Urine WBC Ur Epithelial Cells Other Crystals Urine Bacteria Hyaline Casts Urine Mucus Urine Yeast Urine Culture Comments Stool Occult Blood Stl C.difficile Tox A&B - Medications Medications: Active Medications Albuterol/Ipratropium (Duoneb 2.5-0.5mg/3ml Soln) 3 ml IH QIDRT [facility] Stop: 06/20/16 19:01 Last Admin: 05/22/16 15:06 Dose: 3 ml Aspirin (Aspirin Chewable) 81 mg PO DAILY [facility] Stop: 06/21/16 09:01 Last Admin: 05/22/16 09:35 Dose: Not Given Budesonide (Pulmicort Respules) 0.5 mg IH BIDRT [facility] Stop: 06/20/16 19:01 Last Admin: 05/22/16 06:03 Dose: 0.5 mg Dextrose/Lactated Ringer's (Dextrose 5%-Lr) 1,000 mls @ 250 mls/hr IV .Q4H PRN PRN Reason: HYDRATION Stop: 06/20/16 11:22 Last Infusion: 05/21/16 14:42 Dose: 250 mls/hr Sodium Chloride (Sodium Chloride 0.9%) 1,000 mls @ 150 mls/hr IV .Q6H40M PRN PRN Reason: HYDRATION Stop: 06/20/16 14:25 Last Admin: 05/22/16 00:50 Dose: 150 mls/hr Metronidazole (Flagyl) 500 mg in 100 mls @ 100 mls/hr IV Q8H [facility] Stop: 06/20/16 17:46 Last Admin: 05/22/16 09:57 Dose: 100 mls/hr Ciprofloxacin/Dextrose 400 mg/ (Premix Bag) 200 bag in 200 mls @ 200 mls/hr IV Q24H [facility] PRN Reason: Protocol Stop: 06/20/16 19:01 Last Admin: 05/21/16 19:13 Dose: 200 mls/hr Lactobacillus Acidophilus (Bacid) 1 cap PO DAILY [facility] Stop: 06/21/16 09:01 Last Admin: 05/22/16 09:35 Dose: Not Given Tamsulosin HCl (Flomax) 0.8 mg PO DAILY@1900 [facility] Stop: 06/20/16 19:01 Last Admin: 05/21/16 19:11 Dose: 0.8 mg Tiotropium [place] (Spiriva) 1 cap IH DAILY [facility] Stop: 06/21/16 09:01 Last Admin: 05/22/16 09:36 Dose: Not Given - Disposition Disposition: [facility] Condition: Poor
[2016-05-22] MEDS ORDERED: NORMAL SALINE 1,000 ML IV PRN (18:50)
[2016-05-22] MEDS: TAMSULOSIN HCL 0.4 MG CAP.SR.24H PO SCH (19:04)
[2016-05-22] MEDS: D5W IV SCH (19:10)
[2016-05-22] MEDS: CIPROFLOXACIN LACTATE IV SCH (19:10)
[2016-05-23 01:26] VITALS: BP 98/63
== END 2016-05-22 23:26 | disposition short-term general hospital (02) | DRG 395 ==
LOC: ER 09:52 → MS 14:47 → OBSVTOIN 14:47 → MS 14:49
PROVIDERS: ADMIT Internal Medicine; ATTEND Internal Medicine
PROC: 0D7M8ZZ Dilation of Descending Colon, Via Natural or Artificial Opening Endoscopic (ICD-10-PCS; principal; 2016-05-22 14:00)
DX: K59.39 Other megacolon (principal); K52.89 Other specified noninfective gastroenteritis and colitis; E88.09 Other disorders of plasma-protein metabolism, not elsewhere classified; E86.0 Dehydration; N28.9 Disorder of kidney and ureter, unspecified; I48.2 Chronic atrial fibrillation; I10 Essential (primary) hypertension; E78.5 Hyperlipidemia, unspecified; J44.9 Chronic obstructive pulmonary disease, unspecified; I25.10 Atherosclerotic heart disease of native coronary artery without angina pectoris; I25.2 Old myocardial infarction; Z79.82 Long term (current) use of aspirin